=== PATIENT | female | born 2000 | race Caucasian/White ===

== ENCOUNTER 2024-10-25 19:44 | Day surgery (SDC) | payer BC ==
[2024-10-25 20:27] VITALS: BMI 25.8
[2024-10-25 20:41] LABS: Bilirubin Neg (Negative); Blood, Urine Negative (Negative); Glucose, Urine (Dipstick) Normal (Negative); Ketone, Urine Negative (Negative); Leukocyte Negative (Negative); Nitrite Negative (Negative); Protein, Urine (Dipstick) 15 mg/dl (Neg-Trace); Specific Gravity, Urine 1.025 (1.005-1.030); Urobilinogen Normal mg/dL (Less than 2)
[2024-10-25 21:00] LABS: Clarity Hazy (Clear)
[2024-10-25 21:05] LABS: Bacteria/HPF 1+ HPF (None Seen); CAUTI Indications for Culture Pelvic or flank pain; RBC/HPF None Seen HPF (0-3); Squamous Epithelial 0-3 HPF (0-3); WBC/HPF None Seen HPF (0-3)
[2024-10-25 21:06] LABS: Urine Culture Reflex No No
== END 2024-10-25 21:19 | disposition home or self-care (01) ==
LOC: CSHLD/OP 19:44
PROVIDERS: ATTEND Student in an Organized Health Care Education/Training Program
DX: O99.891 Other specified diseases and conditions complicating pregnancy (principal); M53.3 Sacrococcygeal disorders, not elsewhere classified; Z3A.24 24 weeks gestation of pregnancy
CPT/HCPCS: 81001; 99283